=== PATIENT | male | born 1970 | race Caucasian/White ===

== ENCOUNTER → 2018-08-28 | Outpatient (CLI) | payer BC ==
[~2018-08-28] MED LIST: B-1100 MG PO; CARDIZEM CD180 MG PO; CLARITIN10 MG PO; CRESTOR10 M1 PO; FLONASE ALLERG9.9 ML NAS; FOLIC ACID1 MG PO; K-PHOS500 MG PO; MULTIPLE VITAMI1 CAP PO; NORCO 325 MG-51 TAB PO; TRICOR145 MG PO; VASCEPA1 G1 PO; ZOFRAN4 MG PO
[2018-08-28 16:29] LABS: BASO # 0.1 10*3/uL (0.0-0.1); BASO % 0.8 % (0.0-1.0); EOS # 0.3 10*3/uL (0.0-0.4); EOS % 4.1 % (1.0-4.0); HEMATOCRIT 42.3 % (42.0-52.0); HEMOGLOBIN 14.7 g/dl (14.0-18.0); LYMPH # 2.2 10*3/uL (1.3-4.4); LYMPH % 29.4 % (27.0-41.0); MEAN CELL VOLUME 95.1 fl (80.0-94.0); MEAN CORPUSCULAR HGB CONC 34.8 g/dl (33.0-37.0); MEAN PLATELET VOLUME 8.6 fl (9.6-12.3); MONO # 0.6 10*3/uL (0.1-1.0); MONO % 7.8 % (3.0-9.0); NEUT # 4.4 10*3/uL (2.3-7.9); NEUT % 57.5 % (47.0-73.0); PLATELET COUNT AUTOMATED 235 10*3/uL (130-400); RED BLOOD COUNT 4.45 10*6/uL (4.50-5.90); RED CELL DISTRI WIDTH 12.3 % (0-14.5); WHITE BLOOD COUNT 7.6 10*3/uL (4.8-10.8)
[2018-08-28 16:51] LABS: ALBUMIN 4.3 gm/dl (3.1-4.5); BUN 15 mg/dl (7-24); CHLORIDE 106 mmol/L (98-107); CHOLESTEROL 271 mg/dL (<200); CREATININE 0.94 mg/dL (0.70-1.30); LIPASE 66 U/L (73-393); POTASSIUM 3.3 mmol/L (3.5-5.1); SGOT/AST 17 IU/L (3-35); SGPT/ALT 37 U/L (12-78); SODIUM 141 mmol/L (136-145); TOTAL PROTEIN 7.9 gm/dL (6.4-8.2); TRIGLYCERIDES 971 mg/dl (<150)
[2018-08-28 16:58] LABS: ALKALINE PHOSPHATASE 81 U/L (45-117); HDL CHOLESTEROL 42 mg/dl (40-60)
== END | disposition home or self-care (01) ==
LOC: LAB 15:36
PROVIDERS: Nurse Practitioner Primary Care
DX: K86.1 Other chronic pancreatitis (principal); I10 Essential (primary) hypertension

== ENCOUNTER → 2018-09-27 | Outpatient (CLI) | payer BC ==
--- NOTE | ~2018-09-27 | ST ---
[place], [place] EXERCISE STRESS TEST REPORT NAME: SURINDER TIAN [facility]ADENA CLINICT #: [id number] UNIT #: [id number] ROOM: DOCTOR: BENNY TALAVERA MD BIRTHDATE: [birth year] DOS: 09/27/2018 EXERCISE STRESS TEST REASON FOR TESTING: Palpitations and exertional dyspnea. INTERPRETATION SUMMARY: Exercise test was performed using the Mark protocol. EKG portion of the test was normal. No ischemic ST segment changes were noted. No significant arrhythmia during stress test was noted. No stress test associated chest pain. Normal blood pressure and heart rate response to exercise and recovery. Average functional capacity (10 METS). Jose treadmill score was 9 suggestive of low mortality risk. No previous stress EKG is available for comparison. Benny Talavera MD CM:STRESS:EXERCISE STRESS TEST REPORT [id number] BENNY TALAVERA MD
--- NOTE | ~2018-09-27 | ST ---
[place], [place] EXERCISE STRESS TEST REPORT [id number] UNIT #: [id number] ROOM: DOCTOR: BENNY TALAVERA MD BIRTHDATE: [birth year] DOS: 09/27/2018 EXERCISE STRESS TEST REASON FOR TESTING: Exertional dyspnea and palpitations. Baseline EKG, normal sinus rhythm, normal EKG. INTERPRETATION OF SUMMARY: Exercise stress test was performed using the Mark protocol. The EKG portion of the test was normal. No ischemic ST segment changes were noted. No significant dysrhythmias during the stress test were noted. No stress test associated chest pain. Normal blood pressure and heart rate response during exercise and recovery. Average functional capacity (10 METs). Jose treadmill score of 9 is suggestive of low mortality risk. No previous stress EKG is available for comparison. Benny Talavera MD CM:STRESS:EXERCISE STRESS TEST REPORT [id number] BENNY TALAVERA MD
--- NOTE | 2018-09-27 11:15 | NUR ---
INFORMED CONSENT OBTAINED FOR STANDARD GXT WITH DR. TALAVERA. RESTING EKG SINUS TACH WITH A RESTING HR OF 102 WITH BP OF 130/100 IN SUPINE POSITION AND HR OF 99 WITH BP OF 128/90 IN STANDING POSITION. PT COMPLETED 9:00 OF A DOM PROTOCOL WITH COMPLETION OF STAGE III AT 3.4 MPH AND 14% GRADE. REACHED A PEAK HR OF 157 WHICH IS 92% OF PREDICTED MAX WITH A PEAK BP OF 170/98. TEST TERMINATED BECAUSE OF FATIGUE. HAD NO CHEST PAIN OR ANY EKG CHANGES. HAD C/O SOB AND SPO2 REMAINED 98% TO 99% WITH EXERCISE. HAS A GOOD EXERCISE TOLERANCE. LAST RECOVERY HR OF 112 WITH BP OF 170/100. NEGATIVE STANDARD GXT. FOR ECHOCARDIOGRAM TODAY. LEFT STRESS TESTING AREA IN STABLE CONDITION.
[2018-09-27 11:21] LABS: BASO # 0.1 10*3/uL (0.0-0.1); BASO % 1.1 % (0.0-1.0); EOS # 0.2 10*3/uL (0.0-0.4); EOS % 3.7 % (1.0-4.0); HEMATOCRIT 43.7 % (42.0-52.0); HEMOGLOBIN 15.9 g/dl (14.0-18.0); LYMPH # 1.9 10*3/uL (1.3-4.4); LYMPH % 36.3 % (27.0-41.0); MEAN CELL VOLUME 93.6 fl (80.0-94.0); MEAN CORPUSCULAR HGB CONC 36.4 g/dl (33.0-37.0); MEAN PLATELET VOLUME 8.8 fl (9.6-12.3); MONO # 0.5 10*3/uL (0.1-1.0); MONO % 9.2 % (3.0-9.0); NEUT # 2.6 10*3/uL (2.3-7.9); NEUT % 49.1 % (47.0-73.0); PLATELET COUNT AUTOMATED 251 10*3/uL (130-400); RED BLOOD COUNT 4.67 10*6/uL (4.50-5.90); RED CELL DISTRI WIDTH 11.8 % (0-14.5); WHITE BLOOD COUNT 5.4 10*3/uL (4.8-10.8)
[2018-09-27 14:16] LABS: BUN 20 mg/dl (7-24); CREATININE 0.87 mg/dL (0.70-1.30)
[2018-09-27 14:17] LABS: ALBUMIN 4.2 gm/dl (3.1-4.5); ALKALINE PHOSPHATASE 90 U/L (45-117); CHLORIDE 105 mmol/L (98-107); POTASSIUM 4.2 mmol/L (3.5-5.1); SGOT/AST 41 IU/L (3-35); SGPT/ALT 51 U/L (12-78); SODIUM 139 mmol/L (136-145)
== END | disposition home or self-care (01) ==
LOC: CARD 09-23 08:00 → LAB 00:01 → CARD 00:01
PROVIDERS: Internal Medicine Cardiovascular Disease
DX: I10 Essential (primary) hypertension (principal); R53.83 Other fatigue; R06.00 Dyspnea, unspecified; E78.2 Mixed hyperlipidemia; W57.XXXA Bitten or stung by nonvenomous insect and other nonvenomous arthropods, initial encounter; Q21.0 Ventricular septal defect

== ENCOUNTER → 2019-07-01 | Outpatient (CLI) | payer BC ==
[2019-07-01 16:56] LABS: ALBUMIN 4.1 gm/dl (3.1-4.5); ALKALINE PHOSPHATASE 88 U/L (45-117); BUN 14 mg/dl (7-24); CHLORIDE 105 mmol/L (98-107); CHOLESTEROL 292 mg/dL (<200); CREATININE 0.88 mg/dL (0.70-1.30); HDL CHOLESTEROL 35 mg/dl (40-60); SODIUM 134 mmol/L (136-145)
[2019-07-01 17:16] LABS: TRIGLYCERIDES 1583 mg/dl (<150)
[2019-07-01 20:46] LABS: SGOT/AST 75 IU/L (3-35); SGPT/ALT 58 U/L (12-78)
[2019-07-01 20:47] LABS: POTASSIUM 4.5 mmol/L (3.5-5.1)
== END | disposition home or self-care (01) ==
LOC: LAB 15:52
PROVIDERS: Internal Medicine Cardiovascular Disease
DX: E78.2 Mixed hyperlipidemia (principal); I10 Essential (primary) hypertension